=== PATIENT | female | born 1960 | race Caucasian/White ===

== ENCOUNTER 2020-09-14 17:08 | Outpatient (CLI) | payer BC, SELFPAY ==
--- NOTE | ~2020-09-14 | MM_ITS ---
EXAMINATION: MM screening [facility] w [facility]lexa HISTORY: Screening TECHNIQUE: Craniocaudal and mediolateral oblique 3-D tomosynthesis images were obtained and synthetic 2-D images were generated. CAD analysis was submitted and interpreted. COMPARISON: Comparison to multiple prior studies sequentially, with oldest reviewed study dated 08/24. BREAST PARENCHYMAL COMPOSITION: There are scattered areas of fibroglandular density. FINDINGS: There is no evidence of suspicious mass, calcification, or architectural distortion to sugg est malignancy in either breast. There has been no suspicious interval change. IMPRESSION: 1. No mammographic evidence of malignancy. 2. Recommend routine screening mammography in one year. BI-RADS Category 1: Negative Reviewed, dictated and finalized at location A. MAN
== END 2020-09-14 17:09 | disposition home or self-care (01) ==
LOC: ANHIMG 17:11
PROVIDERS: PCP Family Medicine; Visit Provider Obstetrics & Gynecology
DX: Z12.31 Encounter for screening mammogram for malignant neoplasm of breast (principal)
CPT/HCPCS: 77063; 77067

== ENCOUNTER 2020-11-01 17:40 | Outpatient (CLI) | payer BC, SELFPAY ==
--- NOTE | ~2020-11-01 | XR_ITS ---
XR_[id number]_[id number] 11/01/2020 18:08 Indication: Neck pain for 4-5 months. Radiating pain to left arm. Procedure: 4 view cervical spine Comparison: No prior studies for comparison. Findings: There is subtle anterior listhesis at C5-6. No acute fracture is identified. Moderate multi level facet hypertrophy. Lung apices are normal. Odontoid process within normal limits. Lateral cyndie s normally aligned. No prevertebral soft tissue abnormality. Impression: 1: Moderate cervical spondylosis primarily affecting the facet joints. Reviewed, dictated and finalized at location A. Impression: 1: Moderate cervical spondylosis primarily affecting the facet joints.
== END 2020-11-01 17:41 | disposition home or self-care (01) ==
PROVIDERS: PCP Family Medicine; Visit Provider Chiropractor
DX: M47.22 Other spondylosis with radiculopathy, cervical region (principal)
CPT/HCPCS: 72040

== ENCOUNTER 2022-01-30 17:22 | Outpatient (CLI) | payer BC, SELFPAY ==
--- NOTE | ~2022-01-30 | XR_ITS ---
EXAM: XR foot RT min 3V DATE: 01/30/2022 17:38 HISTORY: M79.671 - Pain in right foot . COMPARISON: 08/01/2015. FINDINGS: Decreased mineralization. No fracture or dislocation. No lytic or blastic lesion. Mild deg enerative change at the first MTP. No erosion or periosteal change. Soft tissues within normal limits . IMPRESSION: No acute osseous finding in the right foot. Reviewed, dictated and finalized at location K.
== END 2022-01-30 17:23 | disposition home or self-care (01) ==
PROVIDERS: PCP Family Medicine; Visit Provider Family Medicine
DX: M79.671 Pain in right foot (principal)
CPT/HCPCS: 73630

== ENCOUNTER 2023-03-21 15:59 | Outpatient (CLI) | payer BC, SELFPAY ==
--- NOTE | ~2023-03-21 | MM_ITS ---
EXAMINATION: MM screening [facility] BI w alexa HISTORY: Screening mammogram TECHNIQUE: Craniocaudal and mediolateral oblique 3-D tomosynthesis images were obtained and synthetic 2-D images were generated. CAD analysis was submitted and interpreted. COMPARISON: 09/14/2020, 09/06/2015, 08/24/2012 BREAST PARENCHYMAL COMPOSITION: There are scattered areas of fibroglandular density. FINDINGS: No suspicious mass, calcification, or architectural distortion are identified in either dina ast to suggest malignancy. There has been no suspicious interval change. IMPRESSION: 1. No mammographic evidence of malignancy. 2. Recommend routine screening mammography in one year. BI-RADS Category 1: Negative Reviewed, dictated and finalized at location A.
== END 2023-03-21 16:00 | disposition home or self-care (01) ==
LOC: ANHIMG 16:44
PROVIDERS: PCP Family Medicine; Visit Provider Obstetrics & Gynecology
DX: Z12.31 Encounter for screening mammogram for malignant neoplasm of breast (principal)
CPT/HCPCS: 77063; 77067